=== PATIENT | male | born 1970 | race Caucasian/White ===

== ENCOUNTER 2020-04-19 19:42 | Emergency (ER) | payer BC ==
--- NOTE | 2020-04-19 19:53 | EDM.PDOC ---
ED HPI GENERAL MEDICAL PROBLEM - General Stated Complaint: FALL-RIB INJURY Time Seen by Provider: 04/19/20 19:45 Source of Information: Reports: Patient History Limitations: Reports: No Limitations - History of Present Illness INITIAL COMMENTS - FREE TEXT/NARRATIVE: pt had accidental fall at his home while going down the stairs , have pain at right lower ribs at his back and reported discomfort at right elbow, denies any other injuries or any other medical concerns or any other associated sx. R posterior rib, R elbow Pain Score (Numeric/FACES): 2 - Related Data Allergies Allergy/AdvReac Type Severity Reaction Status Date / Time No Known Allergies Allergy Verified 04/19/20 20:05 Home Meds: Home Meds NK [No Known Home Meds] 04/19/20 [History] ED ROS GENERAL - Review of Systems Review Of Systems: See Below Constitutional: Reports: No Symptoms HEENT: Reports: No Symptoms Respiratory: Reports: No Symptoms Cardiovascular: Reports: No Symptoms GI/Abdominal: Reports: No Symptoms Skin: Reports: No Symptoms Neurological: Reports: No Symptoms ED EXAM, GENERAL - Physical Exam Exam: See Below Exam Limited By: No Limitations General Appearance: Alert, No Apparent Distress Eye Exam: Bilateral Eye: Normal Inspection Ears: Normal External Exam, Normal Canal, Other (no head or neck injury ) Nose: Normal Inspection Throat/Mouth: Normal Inspection, Normal Oropharynx Head: Atraumatic, Normocephalic Neck: Normal Inspection, Supple, Non-Tender Respiratory/Chest: No Respiratory Distress, Lungs Clear, Normal Breath Sounds Cardiovascular: Normal Peripheral Pulses, Regular Rate, Rhythm GI/Abdominal: Normal Bowel Sounds, Soft, Non-Tender Back Exam: Normal Inspection, Full Range of Motion Extremities: Normal Inspection, Normal Range of Motion, Other (bruising and tendernss noted ate his back at the site of right lower ribs. right elbow exam is nl.) Neurological: Alert, Oriented, CN II-XII Intact, No Motor/Sensory Deficits Skin Exam: Warm Course - Vital Signs Text/Narrative:: xray shows a single rib fracture / mildly displaced , and supportive mng was recommended. including deep breathing , OTC Motrin, as well Rx on hydrocodone. official report by radiology is still pending. Last Recorded V/S: Last Vital Signs Temp 36.8 C 04/19/20 20:00 Pulse 104 H 04/19/20 20:00 Resp 18 04/19/20 20:00 BP 174/100 H 04/19/20 20:00 Pulse Ox 100 04/19/20 20:00 - Orders/Labs/Meds Orders: Active Orders 24 hr Category Date Time Status Ribs 2V w Chest Rt [CR] Stat Exams 04/19/20 19:56 Taken Departure - Departure Time of Disposition: 20:39 Disposition: Home, Self-Care 01 Clinical Impression: Right rib fracture - Discharge Information Referrals: Jesus Breen MD [Physician] - Sepsis Event Note (ED) - Focused Exam Vital Signs: Vital Signs Temp Pulse Resp BP Pulse Ox 04/19/20 20:00 36.8 C 104 H 18 174/100 H 100 - My Orders Last 24 Hours: My Active Orders 04/19/20 19:56 Ribs 2V w Chest Rt [CR] Stat - Assessment/Plan Last 24 Hours: My Active Orders 04/19/20 19:56 Ribs 2V w Chest Rt [CR] Stat
[2020-04-19] MEDS ORDERED: Acetaminophen/HYDROcodone 325-5 MG Tab PO ONE (20:41)
--- NOTE | 2020-04-20 10:36 | CR ---
INDICATION: Right rib pain posteriorly after a fall. RIGHT RIBS WITH CHEST: Two PA views of the chest with four images of the right ribs were obtained 04/19/20 and compared with chest x-ray from 07/19/09, again revealing the heart to be normal in size and shape. The aorta is slightly more prominent in the arch of the aorta with calcification now seen in the arch area. Mild dextroconcave scoliosis of the lower thoracic spine is noted and may be slightly more prominent. A definite active infiltrate, effusion, contusion or pneumothorax was not identified. There is noted on the chest x-ray a slightly offset fracture of the right 8th rib posterolaterally. On subsequent images of the right ribs, multiple fractures are seen at the 8th, 9th, and 10th ribs posterolaterally becoming more posterior at the 10th rib fracture site along an oblique line through those ribs. No other specific abnormality was identified. IMPRESSION: 1. Slightly offset and at the 9th rib fracture site, slightly angulated fractures of the 8th, 9th, and 10th ribs on the right. 2. Progressive ASD aorta. Report was called to Dr. Velazquez at 1021 hours. [facility]
== END 2020-04-19 20:57 | disposition home or self-care (01) ==
LOC: FB.ED 19:42
DX: S22.41XA Multiple fractures of ribs, right side, initial encounter for closed fracture (principal); W10.9XXA Fall (on) (from) unspecified stairs and steps, initial encounter; Y92.009 Unspecified place in unspecified non-institutional (private) residence as the place of occurrence of the external cause
CPT/HCPCS: 71101; 99283; A9270